=== PATIENT | female | born 1990 | race Caucasian/White ===

== ENCOUNTER 2016-02-26 19:18 | Emergency (ER) | payer SELFPAY ==
[~2016-02-26] VITALS: Ht 160 cm; Wt 86.2 kg
[2016-02-26 19:56] LABS: HEMATOCRIT 37.8 % (36.0-46.0); MCH 29.6 PG (29.0-34.0); MCHC 34.7 G/DL (30.0-36.0); MCV 85.3 FL (83-99); MEAN PLAT.VOLUME 9.9 uM^3 (9.5-12.4); PLATELET COUNT 237 K/uL (156-360); RBC DIS.WIDTH-CV 12.8 % (11.8-14.6); RBC DIS.WIDTH-SD 38.9 % (39-53); RED BLOOD COUNT 4.43 M/uL (3.80-5.20); WHITE BLOOD COUNT 10.5 K/uL (4.1-10.2)
[2016-02-26 20:06] LABS: CHLORIDE 104 mEq/L (99-109); POTASSIUM 4.1 mEq/L (3.7-5.4); SODIUM 135 mEq/L (136-147)
[2016-02-26 20:08] LABS: GLUCOSE 85 mg/dL (70-99)
[2016-02-26 20:09] LABS: ANION GAP 9 MEQ/L (2-14)
[2016-02-26 20:10] LABS: TOTAL BILIRUBIN 0.3 mg/dL (0.0-1.0)
[2016-02-26 20:11] LABS: ALKALINE PHOSPHATASE 52 IU/L (3-129)
[2016-02-26 20:13] LABS: UREA NITROGEN (BUN) 12 mg/dL (9-23)
[2016-02-26 20:14] LABS: ADD MIUA? YES; BILIRUBIN NEGATIVE; BLOOD TRACE; COLOR YELLOW ((YELLOW)); GLUCOSE (STRIP) NEGATIVE; KETONES NEGATIVE; LEUKOCYTES MODERATE; NITRITE NEGATIVE; PROTEIN (STRIP) TRACE; UROBILINOGEN 0.2 MG/DL (0.2-1.0)
[2016-02-26 20:16] LABS: GFR ESTIMATE (CALCULATED) > 59 mL/min/
[2016-02-26 21:03] LABS: EPITHELIAL CELLS 1+; MUCUS 1+
[2016-02-26 21:10] LABS: BACTERIA 2+; CASTS NONE SEEN /LPF; CRYSTALS NONE SEEN; UCUL ADDED? YES
[2016-02-26] MEDS ORDERED: KEFLEX500 MG PO (23:09)
[2016-02-26] MEDS ORDERED: MACROBID100 MG PO (23:16)
[2016-02-26 23:36] VITALS: BP 95/41
== END 2016-02-26 23:39 | disposition home or self-care (01) ==
LOC: EME 19:18
DX: O23.41 Unspecified infection of urinary tract in pregnancy, first trimester (principal); F17.200 Nicotine dependence, unspecified, uncomplicated; Z3A.08 8 weeks gestation of pregnancy; Z87.442 Personal history of urinary calculi
CPT/HCPCS: 76801; 80053; 81003; 84702; 85027; 87086; 99281; 99284